=== PATIENT | female | born 2000 | race Caucasian/White ===

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

== ENCOUNTER 2019-04-21 13:05 | Observation (INO) ==
[2019-04-21] MEDS ORDERED: LORazepam 2 MG/4 ML VIAL ONE (13:38)
[2019-04-21] MEDS ORDERED: LORazepam 1 MG/2 ML VIAL IV STA ×2 (13:42→16:32)
[2019-04-21] MEDS ORDERED: SODIUM CHLORIDE 0.9% 1000ML 1,000 ML IV ONE (13:43)
--- NOTE | 2019-04-21 13:49 | Emergency Department Note ---
ED Provider Note CHIEF COMPLAINT: Shortness of breath HISTORY OF PRESENT ILLNESS: The patient is a 18 year old female who presents to the ER because of shortness of breath. The patient also notes the following associated symptoms: Anxiety and hyperventilation. The symptoms started 1 week ago and are constant and unchanging. The patient has tried the following for relief : Prednisone and a few puffs of albuterol via MDI with no relief. The patient is a 18-year-old female who presents to the ER with shortness of breath. She has had flulike symptoms for about a week. She states that she had a stuffy nose, cough and a hoarse voice. No documented fever. She was seen in the ED 4 days ago and work-up was essentially unremarkable. Her chest x-ray and flu swab were negative. The patient states that she saw her primary doctor a few days ago who placed her on a prescription of prednisone. She has taken 2 doses so far. She began having some dry heaves after the second dose of prednisone and this caused her to be more short of breath and started to panic. She presents here hyperventilating and quite dyspneic. The patient has had no recent travel. She states that she has no known history of lung disease. She has a long history of anxiety and posttraumatic stress. She did not have a flu shot this year. The patient has no history of DVT or PE. She does not believe she is . She is not had urinary symptoms. REVIEW OF SYSTEMS: See HPI for pertinent positives and negatives. A total of ten systems were reviewed and were otherwise negative. PMHx/PSHx: See Below SOCIAL HISTORY: See Below. PHYSICAL EXAM: GENERAL: Patient is in significant distress, hyperventilating. HEENT: No acute trauma, normocephalic atraumatic, mucous membranes moist, no nasal congestion, no scleral icterus. NECK: No stridor, no adenopathy, no meningismus, trachea is midline. LUNGS: Clear to auscultation bilaterally, no wheeze, no rhonchi, breath sounds equal. Hyperventilating. HEART: Without murmurs gallops or rubs, moderately tachycardic. ABDOMEN: Soft, nontender, bowel sounds positive, no hernias, no peritonitis. EXTREMITIES: No cyanosis or edema, full range of motion of all the joints without pain or difficulty, no signs for acute trauma. NEUROLOGIC: Oriented x 3, no acute motor or sensory deficits, no focal weakness. SKIN: No rash, no jaundice, no diaphoresis. Psyc: Anxious, hyperventilating, not suicidal. DIFFERENTIAL DIAGNOSIS: Reactive airway disease, pneumonia, pneumothorax, COPD, CHF, infections, cardiac ischemia, pulmonary embolism, musculoskeletal, anxiety, as well as other pathologies. EMERGENCY DEPARTMENT COURSE: The patient was seen and examined, imaging and testing was ordered. Old records were reviewed. I discussed all findings with the patient and her mother, the family expressed concern for coronavirus infection, they requested testing for coronavirus. Patient was still short of breath and tachypneic, I did consult case management, the on-call hospitalist was consulted. MEDICAL DECISION MAKING: There is a mild leukocytosis at 14,000, this is likely consistent with her prednisone use but could be consistent with infection. No anemia. No coagulopathy. No significant electrolyte abnormality or kidney failure. There were a few subtle liver enzyme elevations, the bilirubin was normal. EKG showed a sinus tachycardia, no acute ischemia. Cardiac enzyme testing x1 is not consistent with acute cardiac injury. The patient appeared to be in a euthyroid state. testing was negative. Influenza testing was negative. Chest CT did not show pneumonia or PE. Soft tissue neck CT did not show any abscess or airway compromise. Bio fire respiratory testing was completely negative. The patient presents quite short of breath. She was hyperventilating and seemed anxious. There was no wheezing on my exam. Her O2 saturation was 100%. The patient received IV saline, 1.5 L. She was given 2 doses of IV Ativan to help with anxiety. I did not give any albuterol as she felt this had made her worse earlier. No additional steroids were given as she is already on prednisone. The family approached me about their concern for coronavirus infection. The patient has not had travel, she has not had a fever, she has no findings on CT that would suggest coronavirus infection. She did not meet criteria for testing at the Department of Health. Given the persistent dyspnea, given her tachypnea, given her tachycardia, given the failure of treatment as an outpatient, I do think hospitalization is warranted. The patient does appear to have some sort of respiratory illness that started this whole process. I do think there is some anxiety and hyperventilation here as well. I did speak with case management, the on-call hospitalist has been consulted. Continuous Cardiac Monitoring: An order was placed for continuous cardiac monitoring. The monitor shows a rate of 115 with a sinus tachycardia. EKG: Patient has a sinus tachycardia with a rate of 112, QTc is 505, there are no PVCs, no ST elevation. Impression & Plan SOB (shortness of breath), Anxiety, Tachycardia, Hyperventilation, Failure of outpatient treatment Past Med/Surg History Medical History Anxiety (Chronic) Hearing loss in right ear Major depression (Chronic) No pertinent past medical history PTSD (post-traumatic stress disorder) (Chronic) Surgical History No pertinent past surgical history Family History Other No pertinent family history Social History Preferred Language: Jordanian Communication Ability: Effective Beliefs That Will Affect Care: None Current Living Situation: Family Feels Safe at Home: Yes Smoking Status: Current every day smoker Tobacco Type: cigarettes ; Cigarettes Per Day: 6 ; Hx Alcohol Use: No Results & Data Vital Signs Vital Signs - 24 hr 04/21/19 13:07 04/21/19 13:30 04/21/19 13:31 Pulse Rate 106 H 106 H 117 H Pulse Rate [Apical] Pulse Rate from SpO2 Sensor 120 H 118 H Pulse Rhythm Pulse Rhythm [Apical] Pulse Strength [Apical] Respiratory Rate 22 33 H 16 Respiratory Effort / Characteristics Respiratory Depth Respiratory Pattern Blood Pressure 130/76 Blood Pressure [Right Arm] Blood Pressure Mean 84 Blood Pressure Mean [Right Arm] Blood Pressure Position [Right Arm] Pulse Oximetry 97 100 100 Oxygen Delivery Method Room Air Sepsis Recent Fever Within 48 Hours No Sepsis Action Taken by Nursing No Action Required 04/21/19 13:33 04/21/19 14:00 04/21/19 14:30 Pulse Rate 102 H 92 H Pulse Rate [Apical] 108 H 104 H 102 H Pulse Rate from SpO2 Sensor 101 H Pulse Rhythm Regular Pulse Rhythm [Apical] Regular Regular Regular Pulse Strength [Apical] Normal Normal Normal Respiratory Rate 20 26 H 20 Respiratory Effort / Characteristics Spontaneous Spontaneous Spontaneous Respiratory Depth Normal Normal Normal Respiratory Pattern Regular Regular Regular Blood Pressure 129/93 Blood Pressure [Right Arm] 130/76 129/93 141/82 H Blood Pressure Mean 101 Blood Pressure Mean [Right Arm] 94 105 101 Blood Pressure Position [Right Arm] Sitting Sitting Sitting Pulse Oximetry 100 100 100 Oxygen Delivery Method Room Air Room Air Room Air Sepsis Recent Fever Within 48 Hours Sepsis Action Taken by Nursing 04/21/19 14:35 04/21/19 14:39 04/21/19 15:00 Pulse Rate 93 H 87 Pulse Rate [Apical] Pulse Rate from SpO2 Sensor 89 95 H 90 Pulse Rhythm Pulse Rhythm [Apical] Pulse Strength [Apical] Respiratory Rate 25 H 23 Respiratory Effort / Characteristics Respiratory Depth Respiratory Pattern Blood Pressure 141/82 H 156/86 H Blood Pressure [Right Arm] Blood Pressure Mean 96 114 Blood Pressure Mean [Right Arm] Blood Pressure Position [Right Arm] Pulse Oximetry 100 100 100 Oxygen Delivery Method Sepsis Recent Fever Within 48 Hours Sepsis Action Taken by Nursing 04/21/19 15:30 04/21/19 15:53 04/21/19 16:00 Pulse Rate 107 H 110 H 88 Pulse Rate [Apical] Pulse Rate from SpO2 Sensor 108 H 110 H 86 Pulse Rhythm Pulse Rhythm [Apical] Pulse Strength [Apical] Respiratory Rate 24 32 H 31 H Respiratory Effort / Characteristics Respiratory Depth Respiratory Pattern Blood Pressure 142/89 H 144/89 H 139/89 Blood Pressure [Right Arm] Blood Pressure Mean 97 105 112 Blood Pressure Mean [Right Arm] Blood Pressure Position [Right Arm] Pulse Oximetry 99 99 99 Oxygen Delivery Method Sepsis Recent Fever Within 48 Hours Sepsis Action Taken by Nursing 04/21/19 16:30 04/21/19 16:31 04/21/19 17:00 Pulse Rate 107 H 98 H 116 H Pulse Rate [Apical] Pulse Rate from SpO2 Sensor 107 H 100 H 134 H Pulse Rhythm Pulse Rhythm [Apical] Pulse Strength [Apical] Respiratory Rate 32 H 25 H 33 H Respiratory Effort / Characteristics Respiratory Depth Respiratory Pattern Blood Pressure Blood Pressure [Right Arm] Blood Pressure Mean Blood Pressure Mean [Right Arm] Blood Pressure Position [Right Arm] Pulse Oximetry 99 99 85 L Oxygen Delivery Method Sepsis Recent Fever Within 48 Hours Sepsis Action Taken by Nursing 04/21/19 17:30 04/21/19 18:00 04/21/19 18:30 Pulse Rate 127 H 116 H 127 H Pulse Rate [Apical] Pulse Rate from SpO2 Sensor Pulse Rhythm Pulse Rhythm [Apical] Pulse Strength [Apical] Respiratory Rate 31 H 25 H 28 H Respiratory Effort / Characteristics Respiratory Depth Respiratory Pattern Blood Pressure 101/70 Blood Pressure [Right Arm] Blood Pressure Mean 77 Blood Pressure Mean [Right Arm] Blood Pressure Position [Right Arm] Pulse Oximetry Oxygen Delivery Method Sepsis Recent Fever Within 48 Hours Sepsis Action Taken by Alf Medications Current Medication List: was personally reviewed by me Laboratory Data Attestation: I reviewed the patient's lab results. Result diagrams: 04/21/19 13:39 04/21/19 13:39 Lab Results 04/21/19 04/21/19 04/21/19 Range/Units 13:39 13:39 13:39 WBC 14.16 H (4.8-10.8) K/uL RBC 4.75 (4.2-5.4) M/uL Hgb 15.2 (12.0-16.0) g/dL Hct 42.8 (37-47) % MCV 90.1 (80-100) fL MCH 32.0 (25-34) pg MCHC 35.5 (32-36) g/dL RDW Std Deviation 40.8 (36.4-46.3) fL RDW Coeff of Azael 12.5 (11.5-14.5) % Plt Count 310 (130-400) K/uL MPV 10.3 (7.4-10.4) fL Immature Gran % (Auto) 0.7 % Neut % (Auto) 64.3 % Lymph % (Auto) 23.2 % [place] % (Auto) 11.5 % Eos % (Auto) 0.2 % Baso % (Auto) 0.1 % Immature Gran # (Auto) 0.10 H (0.00-0.02) K/uL Neut # (Auto) 9.09 H (1.4-6.5) K/uL Lymph # (Auto) 3.29 (1.2-3.4) K/uL [place] # (Auto) 1.63 H (0.11-0.59) K/uL Eos # (Auto) 0.03 (0-0.5) K/uL Baso # (Auto) 0.02 (0-0.2) K/uL PT 11.9 (9.0-12.0) Seconds INR 1.1 (0.9-1.1) APTT 28.0 (21.0-31.0) Seconds PTT Ratio 1.0 Sodium 138 (136-145) mmol/L Potassium 3.2 L (3.5-5.1) mmol/L Chloride 103 (98-107) mmol/L Carbon Dioxide 22 (21-32) mmol/L Anion Gap 13.0 H (3-11) BUN 21 H (7-18) mg/dl Creatinine 1.18 (0.6-1.2) mg/dl Est Cr Clr Drug Dosing 73.0 ml/min Est GFR ( Amer) 76.9 Est GFR (Non-Af Amer) 66.3 BUN/Creatinine Ratio 17.8 (10-20) Glucose 104 H (70-99) mg/dl Calcium 10.3 H (8.5-10.1) mg/dl Magnesium 2.3 (1.8-2.4) mg/dl Total Bilirubin 0.8 (0.2-1) mg/dl AST 87 H (15-37) U/L ALT 57 (12-78) U/L Alkaline Phosphatase 156 H (45-117) U/L Troponin I < 0.015 (0-0.045) ng/ml Total Protein 9.1 H (6.4-8.2) gm/dl Albumin 4.4 (3.4-5.0) gm/dl Globulin 4.7 H (2.5-4.0) gm/dl Albumin/Globulin Ratio 0.9 (0.9-2) TSH 2.320 (0.300-4.500) uIu/ml HCG, Qual (Negative) Adenovirus (PCR) (NotDetected) B. pertussis DNA (PCR) (NotDetected) B.parapertussis DNA PCR (NotDetected) C. pneumoniae DNA (PCR) (NotDetected) Coronavirus OC43 (PCR) (NotDetected) Coronavirus HKU1 (PCR) (NotDetected) Coronavirus 229E (PCR) (NotDetected) Coronavirus NL63 (PCR) (NotDetected) Human Metapneumovir PCR (NotDetected) Influenza Type A (PCR) (Neg) Influenza Type B (PCR) (Neg) M. pneumoniae (PCR) (NotDetected) Parainfluenza 1 (PCR) (NotDetected) Parainfluenza 2 (PCR) (NotDetected) Parainfluenza 3 (PCR) (NotDetected) Parainfluenza 4 (PCR) (NotDetected) RSV (PCR) (NotDetected) Entero/Rhino (PCR) (NotDetected) 04/21/19 04/21/19 04/21/19 Range/Units 13:39 14:40 16:45 WBC (4.8-10.8) K/uL RBC (4.2-5.4) M/uL Hgb (12.0-16.0) g/dL Hct (37-47) % MCV (80-100) fL MCH (25-34) pg MCHC (32-36) g/dL RDW Std Deviation (36.4-46.3) fL RDW Coeff of Azael (11.5-14.5) % Plt Count (130-400) K/uL MPV (7.4-10.4) fL Immature Gran % (Auto) % Neut % (Auto) % Lymph % (Auto) % [place] % (Auto) % Eos % (Auto) % Baso % (Auto) % Immature Gran # (Auto) (0.00-0.02) K/uL Neut # (Auto) (1.4-6.5) K/uL Lymph # (Auto) (1.2-3.4) K/uL [place] # (Auto) (0.11-0.59) K/uL Eos # (Auto) (0-0.5) K/uL Baso # (Auto) (0-0.2) K/uL PT (9.0-12.0) Seconds INR (0.9-1.1) APTT (21.0-31.0) Seconds PTT Ratio Sodium (136-145) mmol/L Potassium (3.5-5.1) mmol/L Chloride (98-107) mmol/L Carbon Dioxide (21-32) mmol/L Anion Gap (3-11) BUN (7-18) mg/dl Creatinine (0.6-1.2) mg/dl Est Cr Clr Drug Dosing ml/min Est GFR ( Amer) Est GFR (Non-Af Amer) BUN/Creatinine Ratio (10-20) Glucose (70-99) mg/dl Calcium (8.5-10.1) mg/dl Magnesium (1.8-2.4) mg/dl Total Bilirubin (0.2-1) mg/dl AST (15-37) U/L ALT (12-78) U/L Alkaline Phosphatase (45-117) U/L Troponin I (0-0.045) ng/ml Total Protein (6.4-8.2) gm/dl Albumin (3.4-5.0) gm/dl Globulin (2.5-4.0) gm/dl Albumin/Globulin Ratio (0.9-2) TSH (0.300-4.500) uIu/ml HCG, Qual Negative (Negative) Adenovirus (PCR) Not Detected (NotDetected) B. pertussis DNA (PCR) Not Detected (NotDetected) B.parapertussis DNA PCR Not Detected (NotDetected) C. pneumoniae DNA (PCR) Not Detected (NotDetected) Coronavirus OC43 (PCR) Not Detected (NotDetected) Coronavirus HKU1 (PCR) Not Detected (NotDetected) Coronavirus 229E (PCR) Not Detected (NotDetected) Coronavirus NL63 (PCR) Not Detected (NotDetected) Human Metapneumovir PCR Not Detected (NotDetected) Influenza Type A (PCR) Neg for Influ A Not Detected (Neg) Influenza Type B (PCR) Neg for Influ B Not Detected (Neg) M. pneumoniae (PCR) Not Detected (NotDetected) Parainfluenza 1 (PCR) Not Detected (NotDetected) Parainfluenza 2 (PCR) Not Detected (NotDetected) Parainfluenza 3 (PCR) Not Detected (NotDetected) Parainfluenza 4 (PCR) Not Detected (NotDetected) RSV (PCR) Not Detected (NotDetected) Entero/Rhino (PCR) Not Detected (NotDetected) Administered Medications Ioversol (Optiray 320 125ml) 118 ml IV ONCE PRN PRN Reason: Interaction Checking Stop: 04/25/19 14:25 Last Admin: 04/21/19 14:26 Dose: 118 ml Documented by: [id number] Discontinued Medications Lorazepam (Ativan) 1 mg in 2 mls @ 2 mls/min IV NOW STA Stop: 04/21/19 13:43 Last Admin: 04/21/19 13:44 Dose: 2 mls/min Documented by: [id number] Sodium Chloride (Nss 1000ml) 1,000 mls @ 999 mls/hr IV .Q1H1M ONE Stop: 04/21/19 14:43 Last Infusion: 04/21/19 17:38 Dose: 0 mls/hr Documented by: [id number] Infusion: 04/21/19 14:50 Dose: 0 mls/hr Documented by: [id number] Admin: 04/21/19 13:49 Dose: 999 mls/hr Documented by: [id number] Sodium Chloride (Nss 1000ml) 500 mls @ 999 mls/hr IV .Q31M ONE Stop: 04/21/19 15:40 Last Infusion: 04/21/19 17:38 Dose: 500 mls/hr Documented by: [id number] Admin: 04/21/19 15:56 Dose: 999 mls/hr Documented by: [id number] Lorazepam (Ativan) 1 mg in 2 mls @ 2 mls/min IV NOW STA Stop: 04/21/19 16:33 Last Admin: 04/21/19 17:33 Dose: 2 mls/min Documented by: [id number] Lorazepam (Ativan) Confirm Administered Dose 2 mg .ROUTE .STK-MED ONE Stop: 04/21/19 13:39 Last Admin: 04/21/19 13:44 Dose: Not Given Documented by: [id number] Imaging Data Radiologist's Impression: CT ANGIOGRAM OF THE CHEST CLINICAL HISTORY: Shortness of breath. Possible pulmonary embolism. POSSIBLE MASS COMPARISON STUDY: Chest x-ray dated 04/16/2019 TECHNIQUE: Following the IV administration of 119 mL of Optiray-320, CT angiogram of the thorax was performed from the thoracic inlet to the lung bases utilizing the pulmonary embolus protocol. Images are reviewed in the axial, sagittal, and coronal planes. IV contrast was administered without complication. MIP imaging was performed. A dose lowering technique was utilized adhering to the principles of ALARA. CT DOSE: FINDINGS: The examination is limited from a technical standpoint secondary to respiratory motion artifact. No pathologically enlarged axillary mediastinal or hilar lymph nodes were visualized. There was no evidence of thoracic aortic dilatation. There were no pulmonary artery filling defects to indicate acute pulmonary embolism. No pleural effusions are visualized. There was no evidence of focal pulmonary consolidation. IMPRESSION: 1. No evidence of acute pulmonary embolism. It should be noted that the study is moderately limited from a technical standpoint due to respiratory motion artifact 2. No evidence of focal pulmonary consolidation CT soft tissue neck w con CT DOSE: 576.53 mGy.cm CLINICAL HISTORY: sob, lost voice, possible mass TECHNIQUE: Helical images were acquired during intravenous administration of 119 cc of Optiray 320. A dose lowering technique was utilized adhering to the princ iplsegundo of ARI. COMPARISON STUDY: X-ray study dated 01/18/2017 FINDINGS: The visualized portions of the lung apices are unremarkable. No thyroid masses are visualized. No salivary gland masses are visualized. There are no pathologically enlarged cervical lymph nodes. No necrotic nodes are evident. There are no fluid collections suspicious for abscess. There is no evidence of airway compromise. No mucosal space masses are visualized. The epiglottis appears normal. The study is moderately limited from a technical standpoint due to motion artifact. IMPRESSION: 1. Technically limited study secondary to motion artifact 2. No significant abnormalities identified Blood Pressure Blood Pressure Findings: Elevated blood pressure Blood Pressure Disposition: further management by hospitalist Discharge Plan Visit Data Chief Complaint: Shortness of Breath/Dyspnea Stated Complaint: CAN'T BREATHE, VOMITING ED Provider: Gagan Jeff Discharge Problem: SOB (shortness of breath), Anxiety, Tachycardia, Hyperventilation, Failure of outpatient treatment Patient Disposition: Being Evaluated by Hospitalist Condition: Good
[2019-04-21 14:05] LABS: Basophils # (auto) 0.02 K/uL (0-0.2); Basophils % (auto) 0.1 %; Eosinophils # (auto) 0.03 K/uL (0-0.5); Eosinophils % (auto) 0.2 %; Hematocrit (blood only) 42.8 % (37-47); Hemoglobin 15.2 g/dL (12.0-16.0); Immature Granulocytes % (auto) 0.7 %; Lymphocytes # (auto) 3.29 K/uL (1.2-3.4); Lymphocytes % (auto) 23.2 %; Mean Corpuscular Hgb Conc 35.5 g/dL (32-36); Mean Corpuscular Volume 90.1 fL (80-100); Mean Platelet Volume 10.3 fL (7.4-10.4); Monocytes # (auto) 1.63 K/uL (0.11-0.59); Monocytes % (auto) 11.5 %; Neutrophils # (auto) 9.09 K/uL (1.4-6.5); Neutrophils % (auto) 64.3 %; Platelet Count 310 K/uL (130-400); RDW Coefficient of Variation 12.5 % (11.5-14.5); RDW Standard Deviation 40.8 fL (36.4-46.3); Red Blood Count 4.75 M/uL (4.2-5.4); White Blood Count 14.16 K/uL (4.8-10.8)
[2019-04-21 14:14] LABS: Alanine Aminotransferase 57 U/L (12-78); Albumin Level 4.4 gm/dl (3.4-5.0); Aspartate Aminotransferase 87 U/L (15-37); BUN Creatinine Ratio 17.8 (10-20); Blood Urea Nitrogen 21 mg/dl (7-18); Calcium 10.3 mg/dl (8.5-10.1); Carbon Dioxide 22 mmol/L (21-32); Chloride 103 mmol/L (98-107); Est GFR (African American) 76.9; Est GFR (Non-African American) 66.3; Glucose 104 mg/dl (70-99); Magnesium 2.3 mg/dl (1.8-2.4); Potassium 3.2 mmol/L (3.5-5.1); Sodium 138 mmol/L (136-145)
[2019-04-21 14:15] LABS: Pregnancy Test, Serum Negative (Negative)
[2019-04-21 14:18] LABS: INR 1.1 (0.9-1.1); Prothrombin Time 11.9 Seconds (9.0-12.0)
[2019-04-21 14:24] LABS: Albumin Globulin Ratio 0.9 (0.9-2); Alkaline Phosphatase 156 U/L (45-117); Bilirubin,Total 0.8 mg/dl (0.2-1); Globulin 4.7 gm/dl (2.5-4.0); Total Protein 9.1 gm/dl (6.4-8.2); Troponin I < 0.015 ng/ml (0-0.045)
[2019-04-21] MEDS ORDERED: OPTIRAY 320 125ml IV PRN (14:26)
--- NOTE | 2019-04-21 14:44 | CT Scan Report ---
CT ANGIOGRAM OF THE CHEST CLINICAL HISTORY: Shortness of breath. Possible pulmonary embolism. POSSIBLE MASS COMPARISON STUDY: Chest x-ray dated 04/16/2019 TECHNIQUE: Following the IV administration of 119 mL of Optiray-320, CT angiogram of the thorax was p erformed from the thoracic inlet to the lung bases utilizing the pulmonary embolus protocol. Images a re reviewed in the axial, sagittal, and coronal planes. IV contrast was administered without complica tion. MIP imaging was performed. A dose lowering technique was utilized adhering to the principles o f ALARA. CT DOSE: FINDINGS: The examination is limited from a technical standpoint secondary to respiratory motion estrellita fact. No pathologically enlarged axillary mediastinal or hilar lymph nodes were visualized. There was no evidence of thoracic aortic dilatation. There were no pulmonary artery filling defects to indicate acute pulmonary embolism. No pleural effusions are visualized. There was no evidence of focal pulmonary consolidation. IMPRESSION: 1. No evidence of acute pulmonary embolism. It should be noted that the study is moderately limited f rom a technical standpoint due to respiratory motion artifact 2. No evidence of focal pulmonary consolidation ACT 112: Negative or not required by law. Electronically signed by: Jose Chase M.D. 04/21/2019 2:43 PM
--- NOTE | 2019-04-21 14:48 | CT Scan Report ---
CT soft tissue neck w con CT DOSE: 576.53 mGy.cm CLINICAL HISTORY: sob, lost voice, possible mass TECHNIQUE: Helical images were acquired during intravenous administration of 119 cc of Optiray 320. A dose lowering technique was utilized adhering to the principles of ALARA. COMPARISON STUDY: X-ray study dated 01/18/2017 FINDINGS: The visualized portions of the lung apices are unremarkable. No thyroid masses are visualized. No salivary gland masses are visualized. There are no pathologically enlarged cervical lymph nodes. No necrotic nodes are evident. There are no fluid collections suspicious for abscess. There is no evidence of airway compromise. No mucosal space masses are visualized. The epiglottis appears normal. The study is moderately limited from a technical standpoint due to motion artifact. IMPRESSION: 1. Technically limited study secondary to motion artifact 2. No significant abnormalities identified ACT 112: Negative or not required by law. Electronically signed by: Jose Chase M.D. 04/21/2019 2:46 PM
[2019-04-21] MEDS ORDERED: SODIUM CHLORIDE 0.9% 1000ML 500 ML IV ONE (15:10)
[2019-04-21 15:23] LABS: Influenza A virus by PCR Neg for Influ A (Neg); Influenza B virus by PCR Neg for Influ B (Neg)
--- NOTE | 2019-04-21 17:56 | History & Physical Report ---
Date of Service April 21, 2019 Assessment & Plan (1) Viral URI: Probable viral syndrome with malaise, pharyngitis, cough, wheezing, shortness of breath, nausea, vomiting, diarrhea. Testing for influenza A and B with both antigen assay and PCR negative. Patient is very concerned that she has COVID-19. No travel history or known exposure. No infiltrates on CT. Patient reassured that COVID-19 very unlikely. [employer] respiratory panel ordered by ED provider and results pending at time of admission. Supportive measures with analgesics, antiemetics, IV fluids, nebulizers. (2) Hypokalemia: K = 3.2. Replace, follow. (3) DVT prophylaxis: Low risk for VTE per IMPROVE Risk Assessment Model. DVT prophylaxis not indicated. Ambulate. (4) Discharge planning issues: Anticipated discharge to home. Family Medicine follow-up with Dr. Jg Herndon. History of Present Illness Chief Complaint: malaise, cough, nausea, vomiting, diarrhea Primary Care Provider: NO PCP 18-year-old female followed by Dr. Jg Jones. History of premature , PTSD, and other problems noted below. Became ill about a week ago. Experiencing sweats without fever, pharyngitis, cough, wheezing, shortness of breath, nausea, vomiting, diarrhea, diffuse myalgias. Highest temp was 98.5. Cough productive of white sometimes green, sputum; similar nasal discharge. Hoarse. Developed worsening dyspnea and chest pain with inspiration. Seen in ED on 04/16/19. Nasopharyngeal swab for influenza A/B Ag was negative. Chest x-ray was negative. Received acetaminophen, nebulizer, dexamethasone, ketorolac, IV fluids with improvement. [place] to have a viral syndrome and was discharged home. Seen in clinic 2 days ago for persistent symptoms and prescribed prednisone. Nausea and vomiting worsened after starting prednisone. Return to ED today because of ongoing symptoms and concerns. Patient concerned that she has COVID-19. No travel history and no known contacts. Accompanied by mother in ED. Allergies Allergy/AdvReac Type Severity Reaction Status Date / Time No Known Allergies Allergy Verified 04/21/19 14:27 Home Medications Home Medications Medication Instructions Recorded Confirmed Type Medical Marijuana 1 dose PO DIRECTED 04/16/19 04/21/19 History ascorbic acid (vitamin C) [Vitamin 250 mg PO QAM 04/21/19 04/21/19 History C] cranberry extract [Cranberry 500 mg PO QAM 04/21/19 04/21/19 History Concentrate] Past Med/Surg History Medical History Anxiety (Chronic) Hearing loss in right ear Major depression (Chronic) No pertinent past medical history PTSD (post-traumatic stress disorder) (Chronic) Surgical History No pertinent past surgical history Family History Other No pertinent family history Social History Preferred Language: [place] Citizen Communication Ability: Effective Beliefs That Will Affect Care: None Current Living Situation: Family Feels Safe at Home: Yes Smoking Status: Current every day smoker Tobacco Type: cigarettes ; Cigarettes Per Day: 6 ; Hx Alcohol Use: No Review of Systems Review of Systems: As noted above. Physical Exam Constitutional: WD/WN, vitals as above no acute distress anxious, restless Eyes: PERRL, conjunctivae normal, anicteric sclerae ENMT: external ear and nose normal, oropharynx normal Neck: trachea midline, no thyromegaly Respiratory: normal respiratory effort, lungs clear to auscultation Auscultation: + rhonchi and + wheezes Cardiovascular: Rate/Rhythm: regular rate and + tachycardic Heart Sounds: no gallop, no murmur and no cardiac rub Vessels: no JVD Extremities: no calf tenderness and no edema Gastrointestinal (Abdomen): normal bowel sounds, soft, nontender, no hepatosplenomegaly Musculoskeletal: Head/Neck/Chest: neck supple Extremities: strength 5/5 throughout; no cyanosis and no clubbing Skin: no rashes, warm and dry Neurologic: PERRL, EOMI no facial palsy no dysarthria or aphasia patellar DTR's 2/2 bilat Psychiatric: Orientation: alert and oriented x 3 Mood: + anxious mood Lymphatic: no cervical lymphadenopathy Results & Data Vital Signs (Past 12 Hours) Vital Signs Pulse Pulse Resp BP BP Pulse Ox 04/21/19 15:53 110 H 32 H 144/89 H 99 04/21/19 15:30 107 H 24 142/89 H 99 04/21/19 15:00 87 23 156/86 H 100 04/21/19 14:39 93 H 25 H 141/82 H 100 04/21/19 14:35 100 04/21/19 14:30 102 H 20 141/82 H 100 04/21/19 14:00 92 H 104 H 26 H 129/93 129/93 100 04/21/19 13:33 102 H 108 H 20 130/76 100 04/21/19 13:31 117 H 16 130/76 100 04/21/19 13:30 106 H 33 H 100 04/21/19 13:07 106 H 22 97 Laboratory Results Laboratory Results - last 24 hr 04/21/19 04/21/19 04/21/19 13:39 13:39 13:39 WBC 14.16 H RBC 4.75 Hgb 15.2 Hct 42.8 MCV 90.1 MCH 32.0 MCHC 35.5 RDW Std Deviation 40.8 RDW Coeff of Azael 12.5 Plt Count 310 MPV 10.3 Immature Gran % (Auto) 0.7 Neut % (Auto) 64.3 Lymph % (Auto) 23.2 [place] % (Auto) 11.5 Eos % (Auto) 0.2 Baso % (Auto) 0.1 Immature Gran # (Auto) 0.10 H Neut # (Auto) 9.09 H Lymph # (Auto) 3.29 [place] # (Auto) 1.63 H Eos # (Auto) 0.03 Baso # (Auto) 0.02 PT 11.9 INR 1.1 APTT 28.0 PTT Ratio 1.0 Sodium 138 Potassium 3.2 L Chloride 103 Carbon Dioxide 22 Anion Gap 13.0 H BUN 21 H Creatinine 1.18 Est Cr Clr Drug Dosing 73.0 Est GFR ( Amer) 76.9 Est GFR (Non-Af Amer) 66.3 BUN/Creatinine Ratio 17.8 Glucose 104 H Calcium 10.3 H Magnesium 2.3 Total Bilirubin 0.8 AST 87 H ALT 57 Alkaline Phosphatase 156 H Troponin I < 0.015 Total Protein 9.1 H Albumin 4.4 Globulin 4.7 H Albumin/Globulin Ratio 0.9 TSH 2.320 HCG, Qual Urine Color Urine Appearance Urine pH Ur Specific [place] Urine Protein Urine Glucose (UA) Urine Ketones Urine Blood Urine Nitrite Urine Bilirubin Urine Urobilinogen Ur Leukocyte Esterase Urine RBC Urine WBC Ur Epithelial Cells Urine Bacteria Adenovirus (PCR) B. pertussis DNA (PCR) B.parapertussis DNA PCR C. pneumoniae DNA (PCR) Coronavirus OC43 (PCR) Coronavirus HKU1 (PCR) Coronavirus 229E (PCR) Coronavirus NL63 (PCR) Human Metapneumovir PCR Influenza Type A (PCR) Influenza Type B (PCR) M. pneumoniae (PCR) Parainfluenza 1 (PCR) Parainfluenza 2 (PCR) Parainfluenza 3 (PCR) Parainfluenza 4 (PCR) RSV (PCR) Entero/Rhino (PCR) 04/21/19 04/21/19 04/21/19 13:39 14:40 16:45 WBC RBC Hgb Hct MCV MCH MCHC RDW Std Deviation RDW Coeff of Azael Plt Count MPV Immature Gran % (Auto) Neut % (Auto) Lymph % (Auto) [place] % (Auto) Eos % (Auto) Baso % (Auto) Immature Gran # (Auto) Neut # (Auto) Lymph # (Auto) [place] # (Auto) Eos # (Auto) Baso # (Auto) PT INR APTT PTT Ratio Sodium Potassium Chloride Carbon Dioxide Anion Gap BUN Creatinine Est Cr Clr Drug Dosing Est GFR ( Amer) Est GFR (Non-Af Amer) BUN/Creatinine Ratio Glucose Calcium Magnesium Total Bilirubin AST ALT Alkaline Phosphatase Troponin I Total Protein Albumin Globulin Albumin/Globulin Ratio TSH HCG, Qual Negative Urine Color Urine Appearance Urine pH Ur Specific [place] Urine Protein Urine Glucose (UA) Urine Ketones Urine Blood Urine Nitrite Urine Bilirubin Urine Urobilinogen Ur Leukocyte Esterase Urine RBC Urine WBC Ur Epithelial Cells Urine Bacteria Adenovirus (PCR) Not Detected B. pertussis DNA (PCR) Not Detected B.parapertussis DNA PCR Not Detected C. pneumoniae DNA (PCR) Not Detected Coronavirus OC43 (PCR) Not Detected Coronavirus HKU1 (PCR) Not Detected Coronavirus 229E (PCR) Not Detected Coronavirus NL63 (PCR) Not Detected Human Metapneumovir PCR Not Detected Influenza Type A (PCR) Neg for Influ A Not Detected Influenza Type B (PCR) Neg for Influ B Not Detected M. pneumoniae (PCR) Not Detected Parainfluenza 1 (PCR) Not Detected Parainfluenza 2 (PCR) Not Detected Parainfluenza 3 (PCR) Not Detected Parainfluenza 4 (PCR) Not Detected RSV (PCR) Not Detected Entero/Rhino (PCR) Not Detected 04/21/19 20:30 WBC RBC Hgb Hct MCV MCH MCHC RDW Std Deviation RDW Coeff of Azael Plt Count MPV Immature Gran % (Auto) Neut % (Auto) Lymph % (Auto) [place] % (Auto) Eos % (Auto) Baso % (Auto) Immature Gran # (Auto) Neut # (Auto) Lymph # (Auto) [place] # (Auto) Eos # (Auto) Baso # (Auto) PT INR APTT PTT Ratio Sodium Potassium Chloride Carbon Dioxide Anion Gap BUN Creatinine Est Cr Clr Drug Dosing Est GFR ( Amer) Est GFR (Non-Af Amer) BUN/Creatinine Ratio Glucose Calcium Magnesium Total Bilirubin AST ALT Alkaline Phosphatase Troponin I Total Protein Albumin Globulin Albumin/Globulin Ratio TSH HCG, Qual Urine Color Yellow Urine Appearance Clear Urine pH 7.5 Ur Specific [place] 1.010 Urine Protein Negative Urine Glucose (UA) Negative Urine Ketones 2+ H Urine Blood 3+ H Urine Nitrite Negative Urine Bilirubin Negative Urine Urobilinogen Negative Ur Leukocyte Esterase Negative Urine RBC 10-30 H Urine WBC 0-5 Ur Epithelial Cells 10-20 H Urine Bacteria Negative Adenovirus (PCR) B. pertussis DNA (PCR) B.parapertussis DNA PCR C. pneumoniae DNA (PCR) Coronavirus OC43 (PCR) Coronavirus HKU1 (PCR) Coronavirus 229E (PCR) Coronavirus NL63 (PCR) Human Metapneumovir PCR Influenza Type A (PCR) Influenza Type B (PCR) M. pneumoniae (PCR) Parainfluenza 1 (PCR) Parainfluenza 2 (PCR) Parainfluenza 3 (PCR) Parainfluenza 4 (PCR) RSV (PCR) Entero/Rhino (PCR) Diagnostic Findings CTA CHEST FINDINGS: The examination is limited from a technical standpoint secondary to respiratory motion artifact. No pathologically enlarged axillary mediastinal or hilar lymph nodes were visualized. There was no evidence of thoracic aortic dilatation. There were no pulmonary artery filling defects to indicate acute pulmonary embolism. No pleural effusions are visualized. There was no evidence of focal pulmonary consolidation. IMPRESSION: 1. No evidence of acute pulmonary embolism. It should be noted that the study is moderately limited from a technical standpoint due to respiratory motion artifact 2. No evidence of focal pulmonary consolidation ACT 112: Negative or not required by law. Electronically signed by: Jose Chase M.D. 04/21/2019 2:[address] SOFT TISSUE NECK FINDINGS: The visualized portions of the lung apices are unremarkable. No thyroid masses are visualized. No salivary gland masses are visualized. There are no pathologically enlarged cervical lymph nodes. No necrotic nodes are evident. There are no fluid collections suspicious for abscess. There is no evidence of airway compromise. No mucosal space masses are visualized. The epiglottis appears normal. The study is moderately limited from a technical standpoint due to motion artifact. IMPRESSION: 1. Technically limited study secondary to motion artifact 2. No significant abnormalities identified ACT 112: Negative or not required by law. Electronically signed by: Jose Chase M.D. 04/21/2019 2:46 PM Code Status & VTE Plan VTE Prophylaxis Plan VTE Prophylaxis will be ordered: No
[2019-04-21 18:18] LABS: Adenovirus PCR Not Detected (NotDetected); Bordetella parapertussis PCR Not Detected (NotDetected); Bordetella pertussis PCR Not Detected (NotDetected); Chlamydia pneumoniae PCR Not Detected (NotDetected); Coronavirus 229E PCR Not Detected (NotDetected); Coronavirus HKU1 PCR Not Detected (NotDetected); Coronavirus NL63 PCR Not Detected (NotDetected); Coronavirus OC43PCR Not Detected (NotDetected); Human Metapneumovirus PCR Not Detected (NotDetected); Influenza A PCR Not Detected (NotDetected); Influenza B PCR Not Detected (NotDetected); Mycoplasma pneumoniae PCR Not Detected (NotDetected); Parainfluenza Virus 1 PCR Not Detected (NotDetected); Parainfluenza Virus 2 PCR Not Detected (NotDetected); Parainfluenza Virus 3 PCR Not Detected (NotDetected); Parainfluenza Virus 4 PCR Not Detected (NotDetected); Respiratory Syncytial VirusPCR Not Detected (NotDetected); Rhinovirus/Enterovirus PCR Not Detected (NotDetected)
[2019-04-21] MEDS ORDERED: SODIUM CHLOR IV SCH (19:00)
[2019-04-21] MEDS ORDERED: KCL IV SCH (19:00)
[2019-04-21] MEDS ORDERED: ACETAMINOPHEN 325 MG TAB PO PRN (19:00)
[2019-04-21] MEDS ORDERED: LEVALBUTEROL HCL 0.63 MG/3 ML NEB NEB PRN (19:00)
[2019-04-21] MEDS ORDERED: POTASSIUM CHLORIDE IV SCH (19:00)
[2019-04-21] MEDS: LORazepam 0.5 MG TAB PO PRN (19:11)
[2019-04-21] MEDS: ONDANSETRON INJ 2 MG/ML 2 ML VIAL IV PRN (19:11)
[2019-04-21] MEDS: POTASSIUM CHLORIDE 40 MEQ in SODIUM CHLORIDE 0.45 % 1,000 ML IV SCH (19:45)
[2019-04-21 20:48] LABS: Appearance Urine Clear (Clear); Bilirubin Urine Negative (Negative); Blood Urine 3+ (Negative); Color Urine Yellow; Glucose Urine UA Negative (Negative); Ketones Urine 2+ (Negative); Leukocyte Esterase Urine Negative (Negative); Nitrite Urine Negative (Negative); Protein Urine Negative (Negative); Urobilinogen Urine Negative (Negative); pH Urine 7.5 (4.5-7.5)
[2019-04-21 21:05] LABS: Bacteria Urine Negative (Negative); WBC Urine 0-5 /hpf (0-5)
[2019-04-21] MEDS: FAMOTIDINE 20 MG in SYRINGE 3 ML IV SCH (21:22)
[2019-04-21] MEDS ORDERED: ZOLPIDEM TARTRATE 5 MG TAB PO ONE (22:28)
[2019-04-22] MEDS: LORazepam 0.5 MG TAB PO PRN ×2 (01:34→08:00)
[2019-04-22] MEDS: POTASSIUM CHLORIDE 40 MEQ in SODIUM CHLORIDE 0.45 % 1,000 ML IV SCH ×3 (03:07→16:38)
[2019-04-22 07:17] LABS: BUN Creatinine Ratio 17.7 (10-20); Calcium 9.3 mg/dl (8.5-10.1); Creatinine Clr Calc Pharmacy 105.1 ml/min; Est GFR (African American) 119.4; Potassium 3.8 mmol/L (3.5-5.1)
[2019-04-22] MEDS: FAMOTIDINE 20 MG in SYRINGE 3 ML IV SCH (08:00)
[2019-04-22] MEDS: ONDANSETRON INJ 2 MG/ML 2 ML VIAL IV PRN (10:32)
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
[2019-04-22] MEDS ORDERED: ALPRAZolam 0.5 MG TABLET PO ONE (11:41)
--- NOTE | 2019-04-22 17:10 | Hospitalist Progress Note ---
Date of Service April 22, 2019 Assessment & Plan (1) Viral URI: Probable viral syndrome with malaise, pharyngitis, cough, wheezing, shortness of breath, nausea, vomiting, diarrhea. Testing for influenza A and B with both antigen assay and PCR negative. Patient very concerned that she has COVID-19. No travel history or known exposure. No infiltrates on CT. Patient reassured that COVID-19 very unlikely. [employer] respiratory panel did not reveal any specific pathogens. Received supportive measures with analgesics, antiemetics, IV fluids, nebulizers. Symptoms improved by discharge. (2) Hypokalemia: K = 3.2 at time of admission. Received replacement. Repeat K 3.8. (3) Anxiety: History of anxiety, depression, PTSD. More anxious in light of current illness. Pt requested psychiatry consultation. She did not want to take any prescribed meds on a daily basis. [place] best to avoid controlled substances due to abuse or overdose potential. QTc on admission EKG was 500 msec, so best to avoid QT prolonging meds including diphenhydramine. Outpatient counseling recommended with emphasis on nonpharmacologic management encouraged. (4) Prolonged QT interval: Avoid QT prolonging meds when possible. (5) DVT prophylaxis: Low risk for VTE per IMPROVE Risk Assessment Model. DVT prophylaxis not indicated. Ambulate. (6) Discharge planning issues: Discharge to home. Family Medicine follow-up with Dr. Jg Herndon. Admission and Anticipated Discharge Date Admission Date: April 21, 2019 Subjective Feels better. No fever. Cough improved. No further nausea, vomiting, diarrhea. Still very anxious. Was seen by Psychiatry. Physical Exam Respiratory: Auscultation: + wheezes (mild) Cardiovascular: Rate/Rhythm: regular rate, regular rhythm and + tachycardic (improved) Skin: rash buttocks with small vesicles Psychiatric: Orientation: alert and oriented x 3 Affect: + anxious affect Results & Data ([facility]) Vital Signs (Past 12 Hours) Vital Signs Temp Pulse Resp BP Pulse Ox 04/22/19 15:23 36.9 C 104 H 20 130/81 96 04/22/19 07:22 36.6 C 100 H 20 102/64 99
--- NOTE | 2019-04-22 22:40 | Electrocardiogram Report ---
Test Reason : Blood Pressure : / mmHG Vent. Rate : 112 BPM Atrial Rate : 112 BPM P-R Int : 116 ms QRS Dur : 086 ms QT Int : 370 ms P-R-T Axes : 077 085 055 degrees QTc Int : 505 ms Poor data quality, interpretation may be adversely affected Sinus tachycardia Possible Left atrial enlargement Borderline ECG No previous ECGs available Confirmed by Andres Oliver ([id number]) on 04/22/2019 10:40:36 PM Referred By: REFERRED SELF Confirmed By:Andres Oliver
--- NOTE | 2019-04-23 16:28 | Discharge Summary ---
Date of Service Date of Admission: 04/21/19 Date of Discharge: 04/22/19 Admission HPI Per Admitting Provider 18-year-old female followed by Dr. Jg Jones. History of premature , PTSD, and other problems noted below. Became ill about a week ago. Experiencing sweats without fever, pharyngitis, cough, wheezing, shortness of breath, nausea, vomiting, diarrhea, diffuse myalgias. Highest temp was 98.5. Cough productive of white sometimes green, sputum; similar nasal discharge. Hoarse. Developed worsening dyspnea and chest pain with inspiration. Seen in ED on 04/16/19. Nasopharyngeal swab for influenza A/B Ag was negative. Chest x-ray was negative. Received acetaminophen, nebulizer, dexamethasone, ketorolac, IV fluids with improvement. [place] to have a viral syndrome and was discharged home. Seen in clinic 2 days ago for persistent symptoms and prescribed prednisone. Nausea and vomiting worsened after starting prednisone. Return to ED today because of ongoing symptoms and concerns. Patient concerned that she has COVID-19. No travel history and no known contacts. Accompanied by mother in ED. Principal Diagnosis viral syndrome Discharge Data Allergies Allergy/AdvReac Type Severity Reaction Status Date / Time No Known Allergies Allergy Verified 04/21/19 14:27 Consultations 04/21/19 17:14 ED Decision to Admit Stat 04/22/19 09:11 Consult Psychiatry Routine Ordered Studies 04/21/19 13:43 CT angio chest PE protocol Stat CT soft tissue neck w con Stat Hospital Course (1) Viral URI: Probable viral syndrome with malaise, pharyngitis, cough, wheezing, shortness of breath, nausea, vomiting, diarrhea. Testing for influenza A and B with both antigen assay and PCR negative. Patient very concerned that she has COVID-19. No travel history or known exposure. No infiltrates on CT. Patient reassured that COVID-19 very unlikely. [employer]fire respiratory panel did not reveal any specific pathogens. Received supportive measures with analgesics, antiemetics, IV fluids, nebulizers. Symptoms improved by discharge. (2) Hypokalemia: K = 3.2 at time of admission. Received replacement. Repeat K 3.8. (3) Anxiety: History of anxiety, depression, PTSD. More anxious in light of current illness. Pt requested psychiatry consultation. She did not want to take any prescribed meds on a daily basis. [place] best to avoid controlled substances due to abuse or overdose potential. QTc on admission EKG was 500 msec, so best to avoid QT prolonging meds including diphenhydramine. Outpatient counseling recommended with emphasis on nonpharmacologic management encouraged. (4) Prolonged QT interval: Avoid QT prolonging meds when possible. (5) DVT prophylaxis: Low risk for VTE per IMPROVE Risk Assessment Model. DVT prophylaxis not indicated. Ambulate. (6) Discharge planning issues: Discharge to home. Family Medicine follow-up with Dr. Jg Herndon. Total Time Total Time Spent Total Time Spent (In Minutes): 30 Discharge Plan Discharge Items Patient Disposition: Home - Self-Care Reason For Visit: COUGH Discharge Diagnosis: probable viral illness Condition on Discharge: Good Activity: Resume your previous activity Non-emergency contact: Primary Care Provider and Hospitalist Call non-emergency contact if: you have any medication questions, your symptoms worsen and your temperature is above 101 Follow-up/Referrals: Jg Daniels DO [Physician] - 04/26/19 11:20 am (04/26/2019 11:20 AM Priyanka Miller DO (covering for Dr. Daniels) [facility]) Diet: Regular Addtl Attending Provider Instructions: MEDICATION CHANGES: Stop taking prednisone- seemed to be upsetting your stomach and causing other side effects. SUMMARY OF TEST RESULTS: Testing for flu was negative. Testing for several other common viruses was negative. CT of chest did not show any blood clots or signs of COVID-19. The QT section of your electrocardiogram was longer than usual. The main concern is that you should not take certain medications, including some antibiotics, some behavioral health medications, and antihistamines like diphenhydramine (Benadryl). Please check with your pharmacist or medical provider if you have any questions. RECOMMENDATIONS FOR FOLLOW-UP: Please ask for referral for counseling when you see Dr. Miller in the office. Have her recheck your rash as well. OTHER INSTRUCTIONS: It is very unlikely that you have COVID-19. Testing is not yet readily available and current guidelines do not recommend testing given your circumstances at this time. Seek medical attention if you have: * temperature above 101 * chest pain or trouble breathing * abdominal pain, nausea, vomiting * diarrhea, dark stools or bloody stools * any unanswered questions or concerns Call 911 if symptoms are severe. Please take good care of yourself. Call if you have any questions or problems. You can reach a [facility] hospitalist on duty at [facility] 24 hours a day by calling [phone]. Pending Studies at Discharge: No Stand-Alone Forms: My [facility], Smoking Cessation Medications and DC Order Prescriptions: New acetaminophen 500 mg tablet 1,000 mg PO Q8H PRN (Reason: fever or pain) Qty: 60 RF: 0 Continued Medical Marijuana 1 dose PO DIRECTED RF: 0 ascorbic acid (vitamin C) [Vitamin C] 250 mg Tablet,Chewable 250 mg PO QAM RF: 0 cranberry extract [Cranberry Concentrate] 500 mg Capsule 500 mg PO QAM RF: 0 Discharge Orders: Discharge Order (Routine); Ordered 04/22/19 Ordered By: Garry Jimenez Admission Data Admit Date/Time: 04/21/19 17:19 Attending Provider: Garry Jimenez Admit Provider: Garry Jimenez Primary Care Provider: PCP,NO Other Providers: Garry Jimenez ; Sridevi Ramos Other Interventions: Discharge Summary Assessment (RN) Last Done: 04/22/19 17:31 DC Date/Time DO NOT enter until pt leaves facility: 04/22/19 17:45
== END 2019-04-22 17:45 | disposition home or self-care (01) ==
LOC: 3N 13:05 → ED 13:05 → 3N 21:36